=== PATIENT | female | born 1950 | race Caucasian/White ===

== ENCOUNTER → 2019-02-21 | Outpatient (CLI) | payer MEDICARE, MEDICAID ==
--- NOTE | 2019-02-21 11:36 | Diagnostic Imaging Report ---
INDICATION: Neck pain. Cervical spine. FINDINGS: The odontoid is intact. There is narrowing of the intervertebral disc spaces throughout the cervical spine. Alignment appears normal. There are no appreciable fractures. IMPRESSION: Diffuse degenerative disc changes in the cervical spine. Dictated by: Dictated on workstation # [id number]
== END ==
LOC: RAD FS 11:04
PROVIDERS: ATTEND Nurse Practitioner Family
DX: M50.30 Other cervical disc degeneration, unspecified cervical region (principal)
CPT/HCPCS: 72040

== ENCOUNTER → 2019-08-06 | Outpatient (CLI) | payer MEDICARE, MEDICAID ==
--- NOTE | 2019-08-06 16:32 | Diagnostic Imaging Report ---
EXAMINATION: Left neck ultrasound. INDICATION: Swelling behind the left ear. FINDINGS: There are no prior ultrasound examinations available for comparison. The plain film exam of the cervical spine performed on 02/21/2019 failed to show any sign of an acute bony or soft tissue abnormality. There was diffuse degenerative disease involving the mid and lower cervical spine, however. On this exam, there do appear to be a few small lymph nodes in the soft tissue posterior to the left ear. The largest of these nodes measures 1.0 x 0.9 x 0.4 cm. These nodes do not have a particularly aggressive appearance and may be related to a mild inflammatory/infectious process. If the patient's symptoms do not improve over a short period of time (1-2 week), then a follow-up ultrasound exam would be recommended. There is no mass or abscess identified. IMPRESSION: There is no evidence for a solid mass or for an abscess posterior to the left ear, but there do appear to be a few small lymph nodes in this area. Recommendations as above. Dictated by: Dictated on workstation # [id number]
== END ==
LOC: RAD 14:54
PROVIDERS: ATTEND Family Medicine
DX: M47.812 Spondylosis without myelopathy or radiculopathy, cervical region (principal)
CPT/HCPCS: 76536

== ENCOUNTER 2019-10-16 12:56 | Emergency (ER) | payer MEDICARE, MEDICAID ==
[~2019-10-16] VITALS: Ht 160 cm; Wt 84.5 kg
--- NOTE | 2019-10-16 12:59 | ED General ---
General Stated Complaint: SOB History of Present Illness Date Seen by Provider: Oct 16, 2019 Time Seen by Provider: 12:59 Initial Comments Patient presenting to emergency department for evaluation of shortness of breath and chest tightness that has been going on for 3 days. She says her whole chest feels tight despite using breathing treatments and she feels that she cannot get her breath. She has a history of COPD induced by smoking and is not currently smoking. She says she is on erythromycin every day for the past 2 years. She denies any productive cough fevers chills nausea vomiting or diaphoresis. She says that she has had very loose stools and she has the urge to use the bathroom and cannot make it to the bathroom in time and she soils herself before she gets there. She says she is losing control of her bowels but she does not lose control of her bowels rather she has a sensation and then does not make it to the bathroom in time. She is on her baseline 4 L and has nausea saturation of 94%. She is in moderate respiratory distress with normal vital signs. Allergies and Home Medications Allergies Coded Allergies: No Known Drug Allergies (Unverified , 10/16/19) Patient Home Medication List Home Medication List Reviewed: Yes Review of Systems Review of Systems Constitutional: no symptoms reported EENTM: no symptoms reported Respiratory: short of breath Cardiovascular: no symptoms reported Gastrointestinal: diarrhea Genitourinary: no symptoms reported Musculoskeletal: no symptoms reported Skin: no symptoms reported Psychiatric/Neurological: No Symptoms Reported All Other Systems Reviewed Negative Unless Noted: Yes Past Agfpvot-Iomtcc-Zffegl Hx Patient Social History Recent Foreign Travel: No Physical Exam Vital Signs Vital Signs - First Documented 10/16/19 13:00 Temp 36.9 Pulse 91 Resp 22 B/P (MAP) 132/96 (108) Pulse Ox 94 O2 Delivery Nasal Cannula O2 Flow Rate 4.00 Capillary Refill : Height, Weight, BMI Height: '" Weight: lbs. oz. kg; BMI Method: General Appearance: Chronically ill, Moderate Distress Eyes: Bilateral Eye Normal Inspection HEENT: PERRL/EOMI Neck: Supple Respiratory: Decreased Breath Sounds, Wheezing Cardiovascular: Regular Rate, Rhythm Gastrointestinal: Non Tender, Soft Back: Normal Inspection Extremity: No Pedal Edema Neurologic/Psychiatric: Alert, Oriented x3 Skin: Warm/Dry Progress/Results/Core Measures Suspected Sepsis SIRS Temperature: Pulse: Respiratory Rate: Laboratory Tests 10/16/19 13:40: White Blood Count 7.2 Blood Pressure / Mean: Laboratory Tests 10/16/19 13:40: Creatinine 0.71, Platelet Count 312, Total Bilirubin 0.4 Results/Orders Lab Results Laboratory Tests Test 10/16/19 13:40 Range/Units White Blood Count 7.2 4.3-11.0 10^3/uL Red Blood Count 4.54 4.35-5.85 10^6/uL Hemoglobin 12.1 11.5-16.0 G/DL Hematocrit 39 35-52 % Mean Corpuscular Volume 86 80-99 FL Mean Corpuscular Hemoglobin 27 25-34 PG Mean Corpuscular Hemoglobin Concent 31 L 32-36 G/DL Red Cell Distribution Width 14.4 10.0-14.5 % Platelet Count 312 130-400 10^3/uL Mean Platelet Volume 10.8 H 7.4-10.4 FL Neutrophils (%) (Auto) 76 H 42-75 % Lymphocytes (%) (Auto) 14 12-44 % Monocytes (%) (Auto) 6 0-12 % Eosinophils (%) (Auto) 3 0-10 % Basophils (%) (Auto) 1 0-10 % Neutrophils # (Auto) 5.4 1.8-7.8 X 10^3 Lymphocytes # (Auto) 1.0 1.0-4.0 X 10^3 Monocytes # (Auto) 0.4 0.0-1.0 X 10^3 Eosinophils # (Auto) 0.2 0.0-0.3 10^3/uL Basophils # (Auto) 0.1 0.0-0.1 10^3/uL Sodium Level 140 135-145 MMOL/L Potassium Level 3.9 3.6-5.0 MMOL/L Chloride Level 101 98-107 MMOL/L Carbon Dioxide Level 29 21-32 MMOL/L Anion Gap 10 5-14 MMOL/L Blood Urea Nitrogen 12 7-18 MG/DL Creatinine 0.71 0.60-1.30 MG/DL Estimat Glomerular Filtration Rate > 60 BUN/Creatinine Ratio 17 Glucose Level 117 H 70-105 MG/DL Calcium Level 8.9 8.5-10.1 MG/DL Corrected Calcium 8.9 8.5-10.1 MG/DL Magnesium Level 2.0 1.6-2.4 MG/DL Total Bilirubin 0.4 0.1-1.0 MG/DL Aspartate Amino Transf (AST/SGOT) 17 5-34 U/L Alanine Aminotransferase (ALT/SGPT) 9 0-55 U/L Alkaline Phosphatase 99 40-136 U/L Troponin I < 0.30 <0.30 NG/ML Pro-B-Type Natriuretic Peptide 210.7 H <75.0 PG/ML Total Protein 7.3 6.4-8.2 GM/DL Albumin 4.0 3.2-4.5 GM/DL Micro Results Microbiology 10/16/19 Influenza Types A,B Antigen (ANIBAL) - Final, Complete My Orders Orders - MARY IGNACIO DO Cbc With Automated Diff (10/16/19 13:10) Comprehensive Metabolic Panel (10/16/19 13:10) Influenza A And B Antigens (10/16/19 13:10) Magnesium (10/16/19 13:10) Probnp Fs (10/16/19 13:10) Troponin I Fs (10/16/19 13:10) Chest 1 View Ap/Pa Only (10/16/19 13:10) Ekg Tracing (10/16/19 13:10) Albuterol/Ipra Inhalation Soln (Duoneb I (10/16/19 13:15) Methylprednisolone Sod Succ (Solu-Medrol (10/16/19 13:15) Svn Small Volume Nebulizer (10/16/19 13:10) Albuterol Pre-Mix Nebs (Rt) (Proventil (10/16/19 13:15) Svn Small Volume Nebulizer (10/16/19 13:10) Medications Given in ED Current Medications Medications Dose Ordered Sig/Anshu Route Start Time Stop Time Status Last Admin Dose Admin Albuterol Sulfate 5 mg ONCE ONCE INH 10/16/19 13:15 10/16/19 13:16 DC 10/16/19 13:43 5 MG Albuterol/ Ipratropium 3 ml ONCE ONCE INH 10/16/19 13:15 10/16/19 13:16 DC 10/16/19 13:43 3 ML Methylprednisolone Sodium Succinate 125 mg ONCE ONCE IVP 10/16/19 13:15 10/16/19 13:16 DC 10/16/19 13:40 125 MG Vital Signs/I&O 10/16/19 13:00 Temp 36.9 Pulse 91 Resp 22 B/P (MAP) 132/96 (108) Pulse Ox 94 O2 Delivery Nasal Cannula O2 Flow Rate 4.00 Capillary Refill : Progress Note : Progress Note Patient with shortness of breath is most consistent with a COPD exacerbation my opinion. Loose stools could be from her chronic antibiotic use or other viral illness. I will check labs chest x-ray treat symptoms with breathing treatment steroids and reassess. Workup unremarkable for acute process and patient feeling much better after receiving 3 breathing treatments and an IV dose of Solu-Medrol. 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 Patient and daughter aware and agreeable with plan for discharge and verbalized understanding of the above instructions. Departure Impression Primary Impression: COPD with exacerbation Additional Impression: Diarrhea Disposition: 01 HOME, SELF-CARE Condition: Stable Departure-Patient Inst. Referrals: REMIGIO CABRERA MD (PCP/Family) Primary Care Physician Patient Instructions: Exacerbation of COPD (DC) Scripts Prednisone (Prednisone) 20 Mg Tab 60 MG PO DAILY for 4 Days, #12 TAB 0 Refills Prov: MARY IGNACIO DO 10/16/19 MARY IGNACIO DO Oct 16, 2019 12:59 POS
[2019-10-16] MEDS ORDERED: RT-ALBUTEROL SULF 2.5 MG/3 ML PRE-MIX VIAL INH ONE (13:15)
[2019-10-16] MEDS ORDERED: methylPREDNISolone 125 MG (Solu-MEDROL) VIAL IVP ONE (13:15)
[2019-10-16] MEDS ORDERED: RT-ALBUTEROL/IPRATROPIUM 3 ML (DUONEB) VIAL INH ONE (13:15)
--- NOTE | 2019-10-16 13:39 | Diagnostic Imaging Report ---
INDICATION: Shortness of air. COMPARISON: None FINDINGS: Single frontal view of the chest demonstrates normal heart size and pulmonary vascularity. The lungs hyperinflated with background of chronic appearing interstitial changes. Otherwise, lungs are clear. No large pleural effusion or pneumothorax is seen. The visualized osseous structures show no acute abnormalities. IMPRESSION: 1. No acute cardiopulmonary process. 2. Background obstructive pulmonary disease. Dictated by: Dictated on workstation # [id number]
[2019-10-16 13:53] LABS: HEMOGLOBIN 12.1 G/DL (11.5-16.0); MEAN CORPUSCULAR HEMOGLOBIN 27 PG (25-34); WHITE BLOOD COUNT 7.2 10^3/uL (4.3-11.0)
[2019-10-16 13:54] LABS: BASOPHILS # (AUTO) 0.1 10^3/uL (0.0-0.1); BASOPHILS % (AUTO) 1 % (0-10); EOSINOPHILS # (AUTO) 0.2 10^3/uL (0.0-0.3); EOSINOPHILS % (AUTO) 3 % (0-10); HEMATOCRIT 39 % (35-52); LYMPHOCYTES % (AUTO) 14 % (12-44); MEAN CORPUSCULAR HGB CONC 31 G/DL (32-36); MEAN CORPUSCULAR VOLUME 86 FL (80-99); MEAN PLATELET VOLUME 10.8 FL (7.4-10.4); MONOCYTES # (AUTO) 0.4 X 10^3 (0.0-1.0); MONOCYTES % (AUTO) 6 % (0-12); NEUTROPHILS # (AUTO) 5.4 X 10^3 (1.8-7.8); NEUTROPHILS % (AUTO) 76 % (42-75); PLATELET COUNT 312 10^3/uL (130-400); RED CELL DISTRIBUTION WIDTH 14.4 % (10.0-14.5)
[2019-10-16 14:22] LABS: BUN/CREATININE RATIO 17; CARBON DIOXIDE 29 MMOL/L (21-32); CHLORIDE 101 MMOL/L (98-107); CREATININE SERUM 0.71 MG/DL (0.60-1.30); GFR ESTIMATED > 60; POTASSIUM 3.9 MMOL/L (3.6-5.0); SODIUM 140 MMOL/L (135-145)
[2019-10-16 14:23] LABS: ALANINE AMINOTRANSFERASE 9 U/L (0-55); ALKALINE PHOSPHATASE 99 U/L (40-136); BILIRUBIN,TOTAL 0.4 MG/DL (0.1-1.0); CALCIUM 8.9 MG/DL (8.5-10.1); GLUCOSE 117 MG/DL (70-105); TOTAL PROTEIN 7.3 GM/DL (6.4-8.2)
[2019-10-16] MEDS ORDERED: PRD20T PO (14:38)
[2019-10-16 14:45] VITALS: BP 147/68
== END 2019-10-16 14:45 | disposition home or self-care (01) ==
LOC: EDUNIT# 12:56 → ER FS 12:57
DX: J45.901 Unspecified asthma with (acute) exacerbation (principal); R19.7 Diarrhea, unspecified; Z99.81 Dependence on supplemental oxygen
CPT/HCPCS: 36415; 71045; 80053; 83735; 83880; 84484; 85025; 87804; 93005; 94640; 96374

== ENCOUNTER → 2019-11-13 | Outpatient (CLI) | payer OTHER, MEDICAID ==
[~2019-11-13] MED LIST: PRD20T PO
--- NOTE | 2019-11-13 15:52 | Diagnostic Imaging Report ---
INDICATION: Cough. TIME OF EXAMINATION: 3:37 PM. COMPARISON: 10/16/2019. FINDINGS: The lungs are hyperinflated, consistent with COPD. No definite infiltrate is detected. There is no effusion or pneumothorax. The heart size is stable. IMPRESSION: COPD. No acute infiltrate is detected. Dictated by: Dictated on workstation # [id number]
== END ==
LOC: RAD FS 15:03
PROVIDERS: ATTEND Nurse Practitioner Family
DX: J43.1 Panlobular emphysema (principal)
CPT/HCPCS: 71046

== ENCOUNTER → 2021-03-04 | Outpatient (CLI) | payer OTHER, MEDICAID ==
[~2021-03-04] MED LIST changes: +RT-ALBUTEROL SULF 2.5 MG/3 ML PRE-MIX VIAL IH ONE
--- NOTE | 2021-03-04 17:30 | Diagnostic Imaging Report ---
INDICATION: COPD. Hypoxia. COMPARISON: 11/13/2019. FINDINGS: Frontal and lateral views of the chest were obtained and show normal cardiac silhouette and pulmonary vasculature. There is persistent left basilar airspace disease with blunting of the left lateral costophrenic angle. Lungs are otherwise clear. There is no large effusion or pneumothorax. Osseous structures show no gross acute abnormalities. IMPRESSION: 1. Probable left basilar atelectasis with pleural thickening and/or scarring. 2. No adverse interval change in the chest. Dictated by: Dictated on workstation # [id number]
== END ==
LOC: RT 12:33
PROVIDERS: ATTEND Internal Medicine Critical Care Medicine
DX: J92.9 Pleural plaque without asbestos (principal); J44.9 Chronic obstructive pulmonary disease, unspecified
CPT/HCPCS: 71046; 94060; 94726; 94729

== ENCOUNTER → 2021-05-26 | Outpatient (CLI) | payer OTHER, MEDICAID ==
[~2021-05-26] MED LIST changes: -RT-ALBUTEROL SULF 2.5 MG/3 ML PRE-MIX VIAL IH ONE
--- NOTE | 2021-05-26 14:03 | Diagnostic Imaging Report ---
CT Lung Screening INDICATION: 50 pack year smoking history, cessation 13 years ago. Presents for baseline low-dose CT screening. TECHNIQUE: Noncontrast, low-dose CT imaging performed according to the lung cancer screening protocol. Auto Exposure Controls were utilize during the CT exam to meet ALARA standards for radiation dose reduction. COMPARISON:Baseline FINDINGS:Lung showed symmetrical air trapping with features of centrilobular emphysema. There is some biapical pleural-parenchymal scarring. No suspicious nodularity or dominant lung mass. No findings to suggest active lung cancer. No consolidating pneumonia. No pleural or pericardial effusion. There is coronary artery atherosclerotic vascular calcifications. The thoracic aorta is nonaneurysmal. No acute soft tissue or osseous chest wall pathology. IMPRESSION:No findings to suggest lung cancer. Continued low-dose CT screening followup in one year's time recommended. LUNG-RADS CATEGORY:Category 1 MODIFIER:None OTHER SIGNIFICANT FINDINGS:Nonaneurysmal aortic and coronary artery atherosclerosis with centrilobular emphysema. Dictated by: Dictated on workstation # [id number]
[2021-05-26 14:08] LABS: ABG BASE EXCESS 5.3 MMOL/L (-2.5-2.5); ABG OXYGEN SATURATION 98 % (94-100); ABG PCO2 50 MMHG (35-45); ABG PH 7.39 (7.37-7.43); ABG PO2 91 MMHG (79-93); ABG TCO2 31.8 MMOL/L (21.0-31.0)
[2021-05-26 14:10] LABS: INSPIRED O2 4 L; PATIENT TEMP 36; VENTILATOR NO
== END ==
LOC: CARD 12:34
PROVIDERS: ATTEND Internal Medicine Critical Care Medicine
DX: Z12.2 Encounter for screening for malignant neoplasm of respiratory organs (principal); I08.0 Rheumatic disorders of both mitral and aortic valves; I27.23 Pulmonary hypertension due to lung diseases and hypoxia; I11.9 Hypertensive heart disease without heart failure; J43.9 Emphysema, unspecified; Z87.891 Personal history of nicotine dependence
CPT/HCPCS: 36600; 71271; 82805; 93306

== ENCOUNTER → 2022-03-30 | Outpatient (CLI) | payer OTHER, MEDICAID ==
[~2022-03-30] MED LIST changes: +CATHETER FLUSH 10 ML SYR IV PRN; +HOLD METFORMIN - RECEIVED CONTRAST 20 ML VIAL IV SCH; +IOHEXOL 350 MG/ML 100 ML (OMNIPAQUE 350) VIAL IV ONE; +NS 100 ML (IVPB) BAG IV ONE
[2022-03-30 13:20] LABS: POTASSIUM 4.3 MMOL/L (3.6-5.0)
[2022-03-30 13:21] LABS: BILIRUBIN,TOTAL 0.3 MG/DL (0.1-1.0); CALCIUM 9.5 MG/DL (8.5-10.1); CREATININE SERUM 1.05 MG/DL (0.60-1.30); TOTAL PROTEIN 7.1 GM/DL (6.4-8.2)
[2022-03-30 13:23] LABS: ALBUMIN 4.3 GM/DL (3.2-4.5)
--- NOTE | 2022-03-30 15:41 | Diagnostic Imaging Report ---
PROCEDURE: CT chest without contrast. TECHNIQUE: Multiple contiguous axial images were obtained through the chest without the use of intravenous contrast. Auto Exposure Controls were utilized during the CT exam to meet ALARA standards for radiation dose reduction. INDICATION: Severe COPD with hypoxemia. FINDINGS: There is no axillary adenopathy. There is no mediastinal or hilar adenopathy. Cardiac contour is normal. Coronary calcifications are present. Nonaneurysmal aortic calcifications are also seen. There is a sliver of pericardial fluid. Lungs show COPD with bullous emphysematous changes more prominent in the upper lobes. There is development of a 7 mm discrete nodule in the right lung apex. Chronic interstitial opacities are seen in all five lobes, similar to the previous study. There is no effusion or pneumothorax. Limited assessment of the abdomen shows gallstones and a contracted gallbladder. Nonaneurysmal calcifications are seen in the visualized aorta. IMPRESSION: 1. Severe COPD with bullous emphysematous changes more prominent in the upper lobes. 2. 7 mm discrete nodule has developed in the right upper lobe. Short-term follow-up in three months is recommended. 3. There are chronic interstitial changes similar to the previous study. 4. Cholelithiasis but no secondary signs of acute cholecystitis. Dictated by: Dictated on workstation # [id number]
== END ==
LOC: RAD FS 12:38
PROVIDERS: ATTEND Nurse Practitioner Family
DX: J43.8 Other emphysema (principal); I10 Essential (primary) hypertension; J84.9 Interstitial pulmonary disease, unspecified; K80.20 Calculus of gallbladder without cholecystitis without obstruction; R91.1 Solitary pulmonary nodule
CPT/HCPCS: 36415; 71250; 80053

== ENCOUNTER → 2022-09-20 | Outpatient (CLI) | payer MEDICARE, MEDICAID ==
[2022-09-20 13:39] LABS: CREATININE SERUM 1.12 MG/DL (0.60-1.30); POTASSIUM 3.9 MMOL/L (3.6-5.0)
[2022-09-20 13:40] LABS: BILIRUBIN,TOTAL 0.3 MG/DL (0.1-1.0); CALCIUM 9.4 MG/DL (8.5-10.1); TOTAL PROTEIN 7.3 GM/DL (6.4-8.2)
[2022-09-20 13:41] LABS: ALBUMIN 4.4 GM/DL (3.2-4.5)
--- NOTE | 2022-09-20 16:43 | Diagnostic Imaging Report ---
EXAMINATION: CT chest with intravenous contrast. TECHNIQUE: Multiple contiguous axial images were obtained through the chest after the uneventful administration of intravenous contrast. All CT scans use one or more of the following dose optimizing techniques: automated exposure control, MA and/or KvP adjustment based on patient size and exam type or iterative reconstruction. HISTORY: PANLOBULAR EMPHYSEMA COMPARISON: 03/30/2022. FINDINGS: Thyroid: The thyroid is normal. Mediastinum: Heart size is normal without significant pericardial effusion. Calcifications of the aorta and coronary vessels. Thoracic aorta is normal in caliber. No suspicious lymphadenopathy. Lungs and airways: There are background emphysematous changes of the lungs. Mild groundglass opacities within the upper lobes. There is atelectasis or scarring within the lower lobes. No pleural effusion or pneumothorax. Stable right upper lobe nodular densities measuring up to 0.7 cm. The airways are normal. Upper abdomen: There is cholelithiasis. Musculoskeletal: Degenerative changes of the spine without suspicious osseous lesion or compression fracture. IMPRESSION: 1. Background COPD with stable groundglass opacities within the bilateral upper lobes compared to 03/30/2022. This may be related to scarring or atypical infection. 2. Right upper lobe pulmonary nodule measuring 0.7 cm is unchanged. Recommend continued CT chest follow-up in 6 to 12 months. Dictated by: Dictated on workstation # [id number]
== END ==
LOC: LAB FS 12:54
PROVIDERS: ATTEND Nurse Practitioner Family
DX: J43.1 Panlobular emphysema (principal); I10 Essential (primary) hypertension
CPT/HCPCS: 36415; 71260; 80053; Q9967

== ENCOUNTER 2022-11-15 14:46 | Emergency (ER) | payer MEDICARE, MEDICAID ==
[~2022-11-15] VITALS: Ht 160 cm; Wt 73.5 kg
[~2022-11-15 14:46] MED LIST changes: -CATHETER FLUSH 10 ML SYR IV PRN; -HOLD METFORMIN - RECEIVED CONTRAST 20 ML VIAL IV SCH; -IOHEXOL 350 MG/ML 100 ML (OMNIPAQUE 350) VIAL IV ONE; -NS 100 ML (IVPB) BAG IV ONE
[2022-11-15 14:49] VITALS: BP 112/60
--- NOTE | 2022-11-15 15:25 | Diagnostic Imaging Report ---
EXAMINATION: Chest 1 view HISTORY: Chest pain. COMPARISON: 10/16/2019. FINDINGS: The lung volumes are normal. No focal consolidation is seen. Small amount of patchy opacities are seen in the lung bases. No large pleural effusion or pneumothorax is seen. The cardiomediastinal silhouette is normal in size and contour. No acute osseous abnormality is seen. IMPRESSION: 1. No acute pleuroparenchymal process. 2. Small amount of atelectasis in the lung bases. Dictated by: Dictated on workstation # [id number]
--- NOTE | 2022-11-15 15:44 | ED Cough/URI ---
General Chief Complaint: Cough/Cold/Flu Symptoms Stated Complaint: COUGH; VALERIO; DIARRHEA Nursing Triage Note: Patient reports she has had a headache, chills, diarrhea, and a cough since . She states she was exposed to someone at [facility] with LANAID recently. She also reports some pain/tenderness/redness to her left lower back. Source: patient Exam Limitations: no limitations History of Present Illness Date Seen by Provider: Nov 15, 2022 Time Seen by Provider: 14:50 Initial Comments Patient is a 72-year-old female with history of COPD home O2 dependent on 4 L who presents with headache chills, cough, diarrhea with increased shortness of breath after being exposed to COVID 4 days ago. Patient denies increased oxygen use but she states she is more winded and has to stop regularly to catch her breath she denies chest pain palpitations, recurrent fever, leg pain or swelling. No nausea vomiting or sweats. She also reports some pain tenderness and redness left lower back where she slept on heating pad. No other acute symptoms or complaints. Timing/Duration: other Severity/Quality: other Prior Episodes/Possible Cause: other Modifying Factors: Improves With Other Associated Symptoms: other Allergies and Home Medications Allergies Coded Allergies: No Known Drug Allergies (Unverified , 10/16/19) Patient Home Medication List Home Medication List Reviewed: Yes Prednisone (Prednisone) 20 Mg Tab, 60 MG PO DAILY Prescribed by: MARY IGNACIO on 10/16/19 8901 Review of Systems Review of Systems Constitutional: see HPI EENTM: see HPI Respiratory: see HPI Cardiovascular: see HPI Gastrointestinal: see HPI Genitourinary: see HPI : No Musculoskeletal: see HPI Skin: see HPI Psychiatric/Neurological: See HPI Hematologic/Lymphatic: See HPI Immunological/Allergic: see HPI All Other Systems Reviewed Negative Unless Noted: No Past Omzweow-Emkunf-Opmtzf Hx Patient Social History Tobacco Use?: No Smoking Status: Former Smoker Substance use?: No Alcohol Use?: Yes Alcohol Frequency: Rarely Pt feels they are or have been: No Seasonal Allergies Seasonal Allergies: No Past Medical History Surgery/Hospitalization HX: COPD/Psoriasis Surgeries: Yes Respiratory: Yes (O2 dependent) COPD, Emphysema Neurological: No Genitourinary: No Gastrointestinal: Yes (Hep C) Hepatitis Musculoskeletal: No Endocrine: No HEENT: No Cancer: No Psychosocial: No Integumentary: No Blood Disorders: No Physical Exam Vital Signs - First Documented 11/15/22 11/15/22 14:49 15:15 Temp 36.0 Pulse 104 Resp 20 B/P (MAP) 112/60 (77) Pulse Ox 100 O2 Delivery Room Air O2 Flow Rate 4.00 Capillary Refill : Less Than 3 Seconds Height: '" Weight: lbs. oz. kg; 28.00 BMI Method: General Appearance: WD/WN, no apparent distress Eyes: Bilateral Eye Normal Inspection, Bilateral Eye PERRL HEENT: PERRL/EOMI, normal ENT inspection Neck: supple Respiratory: decreased breath sounds Cardiovascular: normal peripheral pulses, regular rate, rhythm Gastrointestinal: soft Neurologic/Psychiatric: alert, normal mood/affect, oriented x 3 Skin: normal color Lymphatic: no adenopathy Focused Exam Sepsis Stage: Ruled Out Progress/Results/Core Measures Suspected Sepsis SIRS Temperature: Pulse: 104 Respiratory Rate: 20 Blood Pressure 112 /60 Mean: 77 Results/Orders Lab Results Laboratory Tests Test 11/15/22 15:00 Range/Units Influenza Type A (RT-PCR) Not Detected Not Detecte Influenza Type B (RT-PCR) Not Detected Not Detecte SARS-CoV-2 RNA (RT-PCR) Detected H Not Detecte My Orders Orders - AMY REDDY DO Covid 19 Inhouse Test (11/15/22 15:04) Influenza A And B By Pcr (11/15/22 15:04) Isolation Central Supply Req (11/15/22 15:04) Chest 1 View Ap/Pa Only (11/15/22 15:10) Prednisone Tablet (Deltasone Tablet) (11/15/22 15:45) Vital Signs/I&O 11/15/22 11/15/22 14:49 15:15 Temp 36.0 Pulse 104 Resp 20 B/P (MAP) 112/60 (77) Pulse Ox 100 O2 Delivery Room Air Nasal Cannula O2 Flow Rate 4.00 Capillary Refill : Less Than 3 Seconds Blood Pressure Mean: 77 Departure Communication (Admissions) Chest x-ray: No acute cardiopulmonary disease per radiology report. Patient with COPD COVID-positive with mild respiratory compromise without hypoxia. No evidence of pneumonia on x-ray. Will treat for viral COPD exacerbation. Recommendations are supportive and therapeutic care with watchful waiting and PCP follow-up. Return precautions reviewed. Patient and family member verbalized understanding agreement discharge instructions prior to departure. Impression Primary Impression: COVID-19 Additional Impression: COPD exacerbation Disposition: 01 HOME, SELF-CARE Condition: Stable Departure-Patient Inst. Referrals: SRAVANI TO APRN (PCP) Primary Care Physician [facility] (Family) Primary Care Physician Patient Instructions: COVID-19 (DC), Chronic Obstructive Pulmonary Disease (COPD) (DC) Add. Discharge Instructions: You were evaluated in the emergency department for cough, diarrhea increased shortness of breath. COVID test was performed and is positive. Chest x-ray does not show current evidence of pneumonia. Please take newly prescribed medications as directed and follow-up with your PCP in 3 to 5 days for reevaluation if symptoms persist. In the meantime, return to the ED if new or worsening symptoms. All discharge instructions reviewed with patient and/or family. Voiced understanding. Scripts Cephalexin (Cephalexin) 500 Mg Tablet 500 MG PO TID, #21 TAB Prov: AMY REDDY DO 11/15/22 Guaifenesin (Mucinex) 1,200 Mg Tab.er.12h 1200 MG PO Q12H, #20 TAB Prov: AMY REDDY DO 11/15/22 Prednisone (Prednisone) 50 Mg Tab 50 MG PO DAILY, #5 TAB Prov: AMY REDDY DO 11/15/22 AMY REDDY DO Nov 15, 2022 15:44
[2022-11-15] MEDS ORDERED: GUAI120013 PO (15:45)
[2022-11-15] MEDS ORDERED: PRD50T PO (15:45)
[2022-11-15] MEDS ORDERED: CEPH500T PO (15:45)
[2022-11-15] MEDS ORDERED: predniSONE 20 MG TAB PO ONE (15:45)
[2022-11-15] MEDS ORDERED: predniSONE 20 MG TAB ONE (15:56)
== END 2022-11-15 16:00 | disposition home or self-care (01) ==
LOC: EDUNIT# 14:46 → ER FS 14:49
DX: U07.1 COVID-19 (principal); J43.9 Emphysema, unspecified; Z99.81 Dependence on supplemental oxygen; Z87.891 Personal history of nicotine dependence; Z20.822 Contact with and (suspected) exposure to COVID-19
CPT/HCPCS: 71045; 87636

== ENCOUNTER → 2023-10-11 | Outpatient (CLI) | payer MEDICARE ==
[~2023-10-11] MED LIST changes: +CATHETER FLUSH 10 ML SYR IVP PRN; +CEPH500T PO; +GUAI120013 PO; +PRD50T PO; +REGADENOSON 0.4 MG/5 ML SYR IV ONE; +meTOprolol INJECTION 5 MG/5 ML VIAL IV ONE; +meTOprolol INJECTION 5 MG/5 ML VIAL ONE
[2023-10-11 13:47] VITALS: BP 119/68
--- NOTE | 2023-10-12 08:03 | Cardiology Stress Test Report ---
Stress Test Report Date of Procedure/Referring: Date of Procedure: Oct 11, 2023 PCP Stephanie Jackson Aprn Admitting Physician Admitting Physician: Attending Physician: Tam Kwon MD Baseline Heart Rate: 100 Baseline Blood Pressure: Blood Pressure Systolic: 119 Blood Pressure Diastolic: 68 Baseline Vitals Vital Signs Date Time Temp Pulse Resp B/P (MAP) Pulse Ox O2 Delivery O2 Flow Rate FiO2 10/11/23 13:47 100 119/68 (85) Baseline EKG: Baseline EKG: A fib Summary After explaining the procedure to the patient, she signed a consent and then brought to the stress nuclear laboratory. Patient received 0.4 mg Lexiscan for stress test, ECG, heart rate and blood pressure were monitored continuously. Resting and stress dose of radio tracer were injected, imaging was acquired and reviewed in short axis, horizontal long axis and vertical long axis views. TID: 1.17 SSS: 4 SDS: 2 EF: 58 Patient tolerated Lexiscan well Baseline atrial fibrillation persisted during test Mild decrease uptake at the mid to apical inferior wall with mild reversibility, overall there is no significant ischemia or infarction on SPECT images Normal left ventricular size, ejection fraction 58%, gated images are unreliable due to atrial fibrillation Copy Copies To 1: [facility] [place] TAM KWON MD Oct 12, 2023 08:03
== END ==
LOC: CARD 12:12
PROVIDERS: ATTEND Internal Medicine Cardiovascular Disease
DX: I10 Essential (primary) hypertension (principal); I25.10 Atherosclerotic heart disease of native coronary artery without angina pectoris
CPT/HCPCS: 78452; 93017